=== PATIENT | female | born 2000 | race Hispanic/Latino ===

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

== ENCOUNTER 2021-05-21 08:27 | Emergency (ER) | payer MEDICAID ==
[2021-05-21 09:46] LABS: Bilirubin Negative (Negative); Blood, Urine Negative (Negative); Clarity Clear (Clear); Glucose, Urine (Dipstick) Normal (Negative); Ketone, Urine Negative (Negative); Leukocyte Negative Leu/uL (Negative); Nitrite Negative (Negative); Protein, Urine (Dipstick) Negative (Neg-Trace); Specific Gravity, Urine 1.023 (1.002-1.036); Urobilinogen Normal mg/dL (Less than 2)
== END 2021-05-21 10:58 | disposition home or self-care (01) ==
LOC: ERS 08:27
DX: O99.891 Other specified diseases and conditions complicating pregnancy (principal); R10.2 Pelvic and perineal pain; Z3A.30 30 weeks gestation of pregnancy
CPT/HCPCS: 76815; 81003

== ENCOUNTER 2023-06-18 13:09 | Emergency (ER) | payer MEDICAID, OTHER, SELFPAY ==
[2023-06-18 15:26] LABS: SARS-CoV-2 NAA Rapid Test Not Detected (NotDetected)
== END 2023-06-18 14:51 | disposition home or self-care (01) ==
LOC: ERS 13:09
DX: B34.9 Viral infection, unspecified (principal)
CPT/HCPCS: 87081; 87430; 99284

== ENCOUNTER 2024-07-03 16:14 | Emergency (ER) | payer SELFPAY ==
[2024-07-03] MEDS ORDERED: Ibuprofen 200 MG TAB ONE (17:12)
[2024-07-03] MEDS ORDERED: Acetaminophen 500 MG TAB ONE (17:12)
== END 2024-07-03 17:29 | disposition home or self-care (01) ==
LOC: ERS 16:14
DX: H74.8X1 Other specified disorders of right middle ear and mastoid (principal); Z55.6 Problems related to health literacy
CPT/HCPCS: 99282